=== PATIENT | female | born 1950 | race Hispanic/Latino ===

== ENCOUNTER 2018-12-21 07:04 | Day surgery (SDC) | payer MEDICARE ==
[2018-12-19 10:54] VITALS: BP 135/71
[2018-12-19 11:28] LABS: CREATININE 1.1 mg/dL (0.5-1.5); POTASSIUM 4.1 mmol/L (3.5-5.1)
[2018-12-19 12:12] LABS: INR 0.9 (0.85-1.15); PARTIAL THROMBOPLASTIN TIME 24.5 SEC (26.3-35.5); PROTHROMBIN TIME 9.5 SEC (9.6-11.6)
--- NOTE | 2018-12-19 15:21 | NUR ---
DAYNE HACKETT PAGED, CALLED BACK, NOTIFIED THAT PT IS TAKING ELIQUIS BID, LAST DOSE LAST NIGHT, PT FOR PORT A CATH PLACEMENT ON MONDAY. PER DR. HACKETT, INSTRUCT PT NOT TO TAKE ELIQUIS ANYMORE. CALLED PT, SPOKE WITH GENEVIEVE VILLALOBOS, INSTRUCTED TO LET PT KNOW TO STOP TAKING ELIQUIS. NIECE WAS WITH PT ON PREOP EARLIER TODAY. LENAECE VERBALIZED UNDERSTANDING.
[~2018-12-21] VITALS: Ht 149.9 cm; Wt 60.8 kg
[~2018-12-21 07:04] MED LIST: SODIUM CHLORIDE 0.9% 1000ML 1,000 ML IV ONE
--- NOTE | 2018-12-21 07:10 | NUR ---
ADMISSION RECEIVED FROM HOME VIA WALKING. PT AWAKE IN NO ACUTE DISTRESS. CONNECTED TO CONTINUOUS CARDIOPULMONARY MONITORING. DENIES PAIN. ORIENTED TO ROOM. CALL LIGHT WITHIN REACH, SIDE RAILS UP X2, BED IN LOWEST POSITION.
[2018-12-21 07:20] VITALS: BP 146/72
[2018-12-21] MEDS ORDERED: APIX5TAB PO (08:03)
[2018-12-21] MEDS ORDERED: PANT40TA25 PO (08:03)
[2018-12-21] MEDS ORDERED: ATOR20TA65 PO (08:03)
[2018-12-21] MEDS ORDERED: LISI10TA7 PO (08:03)
[2018-12-21] MEDS ORDERED: DOCU100T PO (08:03)
[2018-12-21] MEDS ORDERED: AMLO10TA7 PO (08:03)
[2018-12-21] MEDS ORDERED: [UNRECOGNIZED DRUG - OTHER] (08:03)
[2018-12-21 08:13] LABS: NUCLEATED RED BLOOD CELLS 0.1 % (0.0-0.19)
[2018-12-21 08:24] LABS: BASOPHILS % (AUTO) 1.1 % (0.0-5.0); EOSINOPHILS % (AUTO) 1.4 % (0.0-8.0); HEMATOCRIT 32.2 % (36-48); LYMPHOCYTES % (AUTO) 32.6 % (21.0-51.0); MEAN CORPUSCULAR HGB CONC 33.8 g/dL (32.0-36.0); MEAN CORPUSCULAR VOLUME 94.9 fL (79-99); MONOCYTES % (AUTO) 10.5 % (3.0-13.0); NEUTROPHILS % (AUTO) 54.4 % (40.0-77.0); PLATELET COUNT (AUTO) 277 K/uL (130-400); RED BLOOD CELL COUNT(AUTO) 3.39 MIL/uL (4.00-5.50); RED CELL DISTRIBUTION WIDTH 12.8 % (11.0-15.5); WHITE BLOOD COUNT (AUTO) 6.9 K/uL (4.8-10.8)
--- NOTE | 2018-12-21 09:13 | NUR ---
PROCEDURE TRANSFERRED TO ACRYLIC FABRICATOR VIA BED BY RONAN MAYORGA FOR PORT A CATH PLACEMENT. AWAKE IN NO ACUTE DISTRESS.
[2018-12-21] MEDS ORDERED: IODIXANOL 320 MG/ML 100 ML VIAL ONE (09:31)
[2018-12-21] MEDS ORDERED: LIDOCAINE HCL/EPINEPHRINE 50 ML VIAL IJ ONE (09:31)
[2018-12-21] MEDS ORDERED: LIDOCAINE HCL 1% MDV 50ML VIAL ONE (09:32)
[2018-12-21] MEDS ORDERED: SODIUM BICARB 50MEQ 50ML VIAL ONE (09:32)
[2018-12-21] MEDS ORDERED: MIDAZOLAM HCL 1 MG/ML 2ML VIAL ONE (10:08)
[2018-12-21] MEDS ORDERED: OCTYL 2-CYANOACRYLATE 1 EACH TP ONE (10:31)
[2018-12-21 11:08] VITALS: BP 133/60
--- NOTE | 2018-12-21 11:08 | NUR ---
PATIENT RETUNED FROM SKIP [facility]ITMAN IN NO DISTRESS. LEFT UPPER CHEST DRESSING IS CLEAN AND DRY. PATIENT STATES FEELING FINE. HOB UP AT 45 DEGREES.
[2018-12-21 11:25] VITALS: BP 128/69
[2018-12-21 11:42] VITALS: BP 114/65
[2018-12-21 12:05] VITALS: BP 114/65
--- NOTE | 2018-12-21 12:05 | NUR ---
PATIENT DISCHARGED IN NO DISTRESS VIA WHEELCHAIR WITH FAMILY. DRESSING TO LEFT UPPER CHEST IS CLEAN AND DRY. PATIENT STATES FEELING FINE.
== END 2018-12-21 12:05 | disposition home or self-care (01) ==
LOC: DAH 07:04
PROVIDERS: ATTEND Internal Medicine Medical Oncology
DX: Z45.2 Encounter for adjustment and management of vascular access device (principal); C50.919 Malignant neoplasm of unspecified site of unspecified female breast; C79.82 Secondary malignant neoplasm of genital organs; I10 Essential (primary) hypertension; Z86.711 Personal history of pulmonary embolism; E78.5 Hyperlipidemia, unspecified; Z90.49 Acquired absence of other specified parts of digestive tract
CPT/HCPCS: 36415 ×2; 36561; 77001; 80048; 85025; 85610; 85730; C1788; C1894; J1644 ×2; J2250; J3490 ×2; J7030; 99156; 99157; Q9967

== ENCOUNTER → 2018-12-25 | Outpatient (CLI) | payer MEDICARE ==
[~2018-12-25] MED LIST changes: +AMLO10TA7 PO; +APIX5TAB PO; +ATOR20TA65 PO; +DOCU100T PO; +LISI10TA7 PO; +PANT40TA25 PO; -SODIUM CHLORIDE 0.9% 1000ML 1,000 ML IV ONE; +[UNRECOGNIZED DRUG - OTHER]
== END | disposition home or self-care (01) ==
LOC: RAH 08:46
PROVIDERS: ATTEND Internal Medicine Medical Oncology
DX: Z51.11 Encounter for antineoplastic chemotherapy (principal); I34.0 Nonrheumatic mitral (valve) insufficiency; I31.3 Pericardial effusion (noninflammatory)
CPT/HCPCS: 93306